=== PATIENT | female | born 1990 | race Caucasian/White ===

== ENCOUNTER 2017-06-05 09:26 | Day surgery (SDC) | payer OTHER ==
[~2017-06-05] VITALS: Ht 162.6 cm; Wt 107.0 kg
[~2017-06-05 09:26] MED LIST: INDERAL20 MG PO; MOTRIN600 MG PO; TRI-ESTARYLLA1 EACH PO; TYLENOL EXTRA500 MG PO; Vitamin D PO; ZOLOFT50 MG PO
[2017-06-05 09:57] VITALS: BP 139/87
[2017-06-05 13:42] VITALS: BP 139/81
[2017-06-05 15:10] VITALS: BP 121/71
== END 2017-06-05 15:40 | disposition home or self-care (01) ==
LOC: SDC 09:26
PROC: 0QSG04Z Reposition Right Tibia with Internal Fixation Device, Open Approach (ICD-10-PCS; principal; 2017-06-05)
DX: S82.51XA Displaced fracture of medial malleolus of right tibia, initial encounter for closed fracture (principal); W01.0XXA Fall on same level from slipping, tripping and stumbling without subsequent striking against object, initial encounter
CPT/HCPCS: 73610; 76000; J0131; J0330; J0690; J1100; J2405; J2710; J3010; S0020